=== PATIENT | male | born 1955 | race Hispanic/Latino ===

== ENCOUNTER → 2022-04-12 | Outpatient (CLI) | payer OTHER | LOC: RAD 13:45 | PROVIDERS: ATTEND Internal Medicine | DX: M17.12 Unilateral primary osteoarthritis, left knee (principal); M47.27 Other spondylosis with radiculopathy, lumbosacral region | CPT/HCPCS: 72110 ==

== ENCOUNTER → 2023-01-21 | Outpatient (CLI) | payer OTHER | LOC: MRI 11:57 | PROVIDERS: ATTEND Internal Medicine | DX: M47.27 Other spondylosis with radiculopathy, lumbosacral region (principal) ==